=== PATIENT | female | born 1985 | race Caucasian/White ===

== ENCOUNTER 2017-08-14 23:37 | Emergency (ER) | payer OTHER, SELFPAY ==
[2017-08-14 23:38] VITALS: BP 131/73; PULSE 63; RESP 16; TEMP 37.2; O2SAT 97; BMI 24.5
--- NOTE | 2017-08-15 00:29 | CT_ITS ---
STUDY: CT ABDOMEN AND PELVIS WITHOUT CONTRAST REASON FOR EXAM: Female, 31 years old. Right upper quadrant pain RADIATION DOSAGE (If Supplied By Facility): CTDIvol = ( 6.22 ) mGy, DLP = ( 279.59 ) mGycm TECHNIQUE: Transaxial images were obtained from the dome of the diaphragm to the symphysis pubis without oral contrast, and without intravenous contrast. Sagittal and coronal images were reconstructed. Individualized dose optimization techniques were used for this CT. COMPARISON: None. FINDINGS: The visualized lung bases are unremarkable. The visualized portions of the heart are within normal limits. Normal liver. The gallbladder is contracted. Normal spleen. Normal pancreas. Normal bilateral adrenal glands. Normal right kidney. Normal left kidney. Normal visualized stomach. Normal small intestine. Normal colon. There is non-visualization of the appendix. Normal abdominal aorta. Normal inferior vena cava. Normal retroperitoneum. Normal urinary bladder. Free pelvic fluid. The uterus is retroverted. Normal abdominal wall. Normal osseous structures. CT/Abdomen/Pelvis without Cont IMPRESSION: Contracted gallbladder. No evidence of acute intestinal pathology or acute obstructive uropathy. Free pelvic fluid. Electronically Signed: Mayo Rich MD at 1:24 EST Tel , Service support ,
--- NOTE | 2017-08-15 00:32 | ED.DCSUM_ITS ---
- ER Visit Summary Date of Service: 08/15/17 Chief Complaint: [] Right lower quadrant abdominal pain History of Present Illness: The patient is a 31 F [] complaining of right lower quadrant abdominal pain beginning earlier today. Patient said she went to the urgent care where they marylou labs and sent her home for the lab results. She reports continued pain and concern for appendicitis. Fevers. Denies nausea and vomiting. No other complaints at this time. Physical Examination: [] Afebrile, vital signs stable. Young female in no acute distress cardiovascular exam is regular rate and rhythm. Lungs are clear to auscultation. Abdomen is soft with mild tenderness in the right lower quadrant. No guarding rebound. Remainder of exam is unremarkable. Test Results: [] CBC, CMP: Normal. CT abdomen/pelvis: Negative. Emergency Department Course and Treatment: [] Patient did not want pain or nausea medicine upon initial evaluation. On serial examination patient has no significant changes in exam. She was counseled regarding her diagnostic and laboratory findings. She was amenable to discharge and close follow-up. Treatment Plan: [] Follow-up with PCP. Disposition: [] Discharge, stable. Impression: [] Abdominal pain, unknown etiology This note was generated with [employer] dictation software. It may contain incorrect words, spelling, and punctuation that were not noted in review of the chart prior to signing ED Disposition - Plan for ED Patient: Chief Complaint: Abd Pain Referrals: Karissa Byers [Primary Care Provider] -
[2017-08-15 00:40] LABS: Absolute Lymphocyte Count 3.81 X10^3/ul (0.83-4.51); Absolute Neutrophil Count 1.8 X10^3/uL (2.0-7.7); Basophil# 0.03 X10^3/uL; Basophil% 0.5 % (0-1); Eosinophils% 3.1 % (0-5); Hematocrit 38.8 % (37-47); Hemoglobin 12.9 g/dl (12.0-15.0); Lymphocyte # 3.81 X10^3/ul (4.0); Lymphocyte % 58.9 % (19-41); Mean Corp Hgb Conc 33.2 g/gl (32-36); Mean Corpuscular Hgb 28.5 pg (27.0-32.0); Mean Corpuscular Volume 85.8 fL (81-99); Mean Platelet Vol. 9.5 fl (6.2-12.0); Monocyte# 0.66 X10^3/uL; Monocyte% 10.2 % (0-10); Neutrophil # 1.76 X10^3/uL (2.7-7.7); Neutrophil % 27.1 % (47-70); Platelet Count 271 K/mm3 (150-450); RBC Distribution Width SD 40.9 fl (35.1-43.9); Red Blood Count 4.52 M/mm3 (4.2-5.4); White Blood Count 6.5 K/mm3 (4.4-11.0)
[2017-08-15 00:41] LABS: POSITIVE COUNT NO; POSITIVE DIFFERENTIAL NO; POSITIVE MORPHOLOGY NO
[2017-08-15 00:48] LABS: ALB/GLOB Ratio 0.9 RATIO (0.9-2.4); AST(SGOT) 14 U/L (15-37); Alanine Aminotransfer ALT/SGPT 22 U/L (13-56); Albumin, Serum 3.5 g/dL (3.2-5.0); Alkaline Phosphatase 65 U/L (45-117); Anion Gap 7 (5-15); BUN 10 mg/dL (7-18); BUN/Creat Ratio 13.1 RATIO (10-20); Calcium,Total 8.4 mg/dL (8.5-10.1); Chloride 108 mmol/L (98-107); Creatinine, Serum 0.76 mg/dL (0.55-1.02); EST Glomerular Filtration Rate 95 mL/min (>60); Est Glom Filt Rate - Afr Amer 115 mL/min (>60); Estimated Creatinine Clearance 82.42 ml/min; Glucose 109 mg/dL (74-106); Potassium 3.7 mmol/L (3.5-5.1); Protein, Total 7.5 g/dL (6.4-8.2); Sodium Level 144 mmol/L (136-145)
--- NOTE | 2017-08-15 01:32 | ED.DEP ---
ED Disposition - Plan for ED Patient: Disposition: Home or Assisted Living Chief Complaint: Abd Pain Instructions: ED Abdominal Pain Unkn Cause Referrals: Karissa Byers [Primary Care Provider] -
[2017-08-15 01:43] VITALS: BP 100/58; PULSE 73; RESP 16
== END 2017-08-15 01:44 | disposition home or self-care (01) ==
PROVIDERS: Emergency Provider Emergency Medicine; Family Provider Family Medicine; PCP Family Medicine
DX: R10.31 Right lower quadrant pain (principal)
CPT/HCPCS: 74176; 80053; 85025; 99283; A4216

== ENCOUNTER → 2018-04-21 10:28 | Outpatient (CLI) | payer OTHER, SELFPAY ==
[2018-04-21 12:28] LABS: Hematocrit 40.6 % (37-47); Hemoglobin 13.4 g/dl (12.0-15.0); Mean Corpuscular Hgb 28.3 pg (27.0-32.0); Mean Corpuscular Volume 85.8 fL (81-99); Mean Platelet Vol. 10.2 fl (6.2-12.0); Platelet Count 305 K/mm3 (150-450); RBC Distribution Width CV 12.8 % (11.6-14.6); Red Blood Count 4.73 M/mm3 (4.2-5.4); White Blood Count 4.7 K/mm3 (4.4-11.0)
[2018-04-21 12:37] LABS: Scan Indicated on CBC? Y/N NO
[2018-04-21 12:48] LABS: Free T3 2.7 pg/mL (2.18-3.98); T4 Free Direct 0.93 ng/dL (0.76-1.46); Thyroid Stim Hormone (TSH) 0.63 uIU/mL (0.358-3.74)
[2018-04-21 13:38] LABS: Hemoglobin A1c 5.2 % (4.2-6.3)
[2018-04-27 14:49] LABS: HPV HC, High Risk Negative (Negative)
== END ==
PROVIDERS: Visit Provider Obstetrics & Gynecology
DX: R53.83 Other fatigue (principal); Z12.72 Encounter for screening for malignant neoplasm of vagina
CPT/HCPCS: 36415; 83036; 84439; 84443; 84481; 85027; 87624; 88175; G0145

== ENCOUNTER → 2018-07-26 09:56 | Outpatient (CLI) | payer OTHER, SELFPAY ==
[2018-07-26 09:46] VITALS: BMI 22.1
--- NOTE | 2018-07-26 09:56 | RAD_ITS ---
STUDY: X-RAY - RIGHT HAND REASON FOR EXAM: Female, 32 years old. Fifth metacarpal pain following injury. TECHNIQUE: 3 view(s) of the hand. COMPARISON: Comparison is made with prior study dated June 04, 2017. FINDINGS: Normal radiocarpal articulation. Normal distal radioulnar joint. Normal visualized carpal bones. Normal carpal articulations Normal carpometacarpal articulation of the thumb. Normal second through fifth carpometacarpal joints. Normal metacarpi. Normal metacarpophalangeal joint of the thumb. Normal interphalangeal joint of the thumb. Normal proximal and distal phalanges of the thumb. Normal metacarpophalangeal joints of the second through fifth fingers. Normal proximal and distal interphalangeal joints of the second through fifth fingers. Normal phalanges of the second through fifth fingers. The soft tissue structures are unremarkable. RAD/Hand Min 3 Views IMPRESSION: Normal x-ray examination of the hand. Electronically Signed: Jigar Sweeney MD at 10:27 EST Tel [phone], Service support ,
--- OUTSIDE RECORDS SUMMARY | 2018-09-27 19:58 | XMS RPT_ITS ---
:1985 Author Organization OHIP Care Team Providers Name Role Phone CHA ARGUELLO (RUBBER MILL OPERATOR) Referring Unavailable Denys Hernandez Attending Unavailable Denys Hernandez Attending Unavailable Denys Hernandez Referring Unavailable Mikye Byers Primary Care Unavailable Risa Cohn Attending Unavailable Maximiliano Cummings Attending Unavailable PROBLEMS PROBLEMS DATE TYPE CONDITION / CODE ATTENDING STATUS SOURCE 07/26/2018 Unknown S60.221A - Denys Hernandez Active [place] Contusion of right Community hand, initial Hospital encounter / Repository S60.221A(ICD-10) 04/21/2018 Unknown Z12.72 - Encounter Maximiliano Cummings for screening for Community malignant neoplasm [facility] / Repository Z12.72(ICD-10) 12/15/2017 Active Dysuria / NA Active [facility] R30.0(ICD-10) Other [place] Repository 08/14/2017 Active Periumbilical pain NA Active [facility] / R10.33(ICD-10) Main [place] Repository PROCEDURES PROCEDURES No Procedure Records FoundRESULTS RESULTS URGENT CARE VISIT Observed: 07/26/2018 Status: F Source: [place] REPORT 12:11 PM [facility] REPOSITORY [facility] [address] [place] [address] OFFICE VISIT Date of Service: 07/26/18 MR#: [id number] Acct: [id number] Name: MIKEY FREITAS Rep #: [id number] : 1985 Provider: Denys MAHMOOD Age/Sex: 32/F Location: [facility] Status: Signed Intake Vital Signs07/26/18 Height 5 ft 4 in Intake Visit Reasons: RIGHT HAND INJURY/ FROM PUNCHING A PUNCHING BAG Chief Complaint: Right hand Senior Actuarial Analyst Required: No Accompanied by: self Is patient in pain?: No Allergies ibuprofen [From Advil] Allergy (Verified 07/26/18 09:46) Rash PFSH Medical History History of gestational diabetes (Acute) Surgical History History of delivery (Acute) History of laparoscopy (Acute) Family History Other Colon cancer Myocardial infarction Social History Smoking Status: Never smoker HPI HPI Chief Complaint: Right hand Details: MIKEY FREITAS, is a 32 F who presents to the office today for complaint of right hand pain after punching a punching bag. Patient states that when she punched a punching bag she felt a popping sensation. She continues to have the pain with no relief since and is concerned for fracture. She localizes the pain over the fifth metacarpal area. She denies any loss in range of motion, sensation or strength. She does state using ice 2 times daily for 10 minutes. No other associated symptoms or alleviating/aggravating factors. ROS Const Constitutional: No chills, fever(s), fatigue or abnormal sleep pattern Musc Musculoskeletal: Positive for joint pain and stiffness; no joint swelling, limited range of motion, muscle weakness, tingling or numbness Skin Skin: No wounds or lesions Neuro Neurology: No behavioral changes, confusion, tingling or numbness Psych Psychiatric: No behavioral changes, No confusion, No abnormal sleep pattern Endo Endocrine: No fatigue Exam Const General: cooperative, healthy appearing Musc Musculoskeletal: No muscle weakness Skin General: no rashes or lesions noted Neuro General: alert, CN's II-XI intact bilaterally Extrem General: full ROM, normal capillary refill, no joint enlargement, normal exam except as noted Other: Pain to palpation over the fifth metacarpal with no obvious deformity or crepitus. Full range of motion, sensation and capillary refill throughout. Psych Appearance: grossly normal Mental Status: mental status grossly normal Assessment AND Plan Problems 1. Contusion of right hand, initial encounter S60.221A Status Acute Plan X-ray of the hand read and reviewed by myself finding no acute fractures. Awaiting radiology interpretation at time of dictation. Patient advised to continue with ice however to do over 20 minutes 2-3 times daily or use a warm water bath which ever alleviates the pain better. Advised to use ibuprofen or Tylenol unless contraindicated for pain relief. Patient advised to follow-up with her PCP in 7-10 days if no better sooner if worse. Patient advised of potential red flags and when appropriate to report to the ED. Patient verbalized understanding and agreement with all the above. Orders Orders: Coding Level of Care Code Off vis,est,level 4 Diagnoses Contusion of right hand, initial encounter S60.221A 07/26/18 1211 <Electronically signed by Denys MAHMOOD> Date Denys MAHMOOD Cosigner Signature: Date (if applicable) CC: HAND MIN 3 VIEWS Observed: 07/26/2018 Status: F Source: [place] 9:57 AM [facility] REPOSITORY [facility] Imaging Services [address] [place] [id number] Hand Min 3 Views MR#: [id number] Acct: [id number] Name: MIKEY FREITAS Rep #: [id number] : 1985 F 32 From: Jigar Sweeney MD PCP: Status: REG CLI Study: Hand Min 3 Views Date of Exam: 07/26/18 Exam# [id number] Ordering Dr: Denys Hernandez STUDY: X-RAY - RIGHT HAND REASON FOR EXAM: Female, 32 years old. Fifth metacarpal pain following injury. TECHNIQUE: 3 view(s) of the hand. COMPARISON: Comparison is made with prior study dated June 04, 2017. FINDINGS: Normal radiocarpal articulation. Normal distal radioulnar joint. Normal visualized carpal bones. Normal carpal articulations Normal carpometacarpal articulation of the thumb. Normal second through fifth carpometacarpal joints. Normal metacarpi. Normal metacarpophalangeal joint of the thumb. Normal interphalangeal joint of the thumb. Normal proximal and distal phalanges of the thumb. Normal metacarpophalangeal joints of the second through fifth fingers. Normal proximal and distal interphalangeal joints of the second through fifth fingers. Normal phalanges of the second through fifth fingers. The soft tissue structures are unremarkable. RAD/Hand Min 3 Views IMPRESSION: Normal x-ray examination of the hand. Electronically Signed: Jigar Sweeney MD at 10:27 EST Tel [phone], Service support , CC: Denys MAHMOOD Single Resource Boss: Signed CBC-COMPLETE BLOOD CNT Collected: 04/21/2018 Status: F Source: [place] NO DIFF 10:31 AM [facility] REPOSITORY TYPE CODE TESTS RESULT OUT OF RANGE REFERENCE UNITS LAB L100.1000 4.4-11.0 K/mm3 Normal WBC 4.7 LAB L100.1200 4.2-5.4 M/mm3 Normal RBC 4.73 LAB L100.1300 12.0-15.0 g/dl Normal HGB 13.4 LAB L100.1400 37-47 % Normal HCT 40.6 LAB L100.1500 81-99 fL Normal MCV 85.8 LAB L100.1600 27.0-32.0 pg Normal MCH 28.3 LAB L100.1700 32-36 g/gl Normal MCHC 33.0 LAB L100.1810 11.6-14.6 % Normal RDW CV 12.8 LAB L100.1820 35.1-43.9 fl Normal RDW SD 40.0 LAB L100.1900 150-450 K/mm3 Normal PLT 305 LAB L100.2000 6.2-12.0 fl Normal MPV 10.2 Performed By: #### L100.0500 #### [facility] [address] [facility] [place], [address] FREE T3 Collected: 04/21/2018 Status: F Source: [place] 10:31 AM [facility] REPOSITORY TYPE CODE TESTS RESULT OUT OF RANGE REFERENCE UNITS LAB L501.70734 2.18-3.98 pg/mL Normal FREE T3 2.7 Performed By: #### L501.26568, L501.9520, L506.0400 #### [facility] [address] [facility] [place], [address] THYROID STIM HORMONE Collected: 04/21/2018 Status: F Source: [place] ([facility]) 10:31 AM [facility] REPOSITORY TYPE CODE TESTS RESULT OUT OF RANGE REFERENCE UNITS LAB L501.9520 0.358-3.74 uIU/mL Normal TSH 0.63 Performed By: #### L501.08234, L501.9520, L506.0400 #### [facility] [address] [facility] [place], [address] T4 FREE DIRECT Collected: 04/21/2018 Status: F Source: [place] 10:31 AM [facility] REPOSITORY TYPE CODE TESTS RESULT OUT OF RANGE REFERENCE UNITS LAB L506.0400 0.76-1.46 ng/dL Normal T4 FREE 0.93 DIRECT Performed By: #### L501.78648, L501.9520, L506.0400 #### [facility] [address] [facility] [place], [address] HEMOGLOBIN A1C Collected: 04/21/2018 Status: F Source: [place] 10:31 AM [facility] REPOSITORY TYPE CODE TESTS RESULT OUT OF RANGE REFERENCE UNITS LAB L501.9985 4.2-6.3 % Normal HGB A1C 5.2 Performed By: #### L501.9985 #### [facility] [address] [place], [address] PAP I-G HPV HI Collected: 04/21/2018 Status: F Source: [place] RISK 10:10 AM [facility] REPOSITORY Order Comment: CYTOLOGY INFORMATION: - CLINICAL INFORMATION: - DATE LMP/MENOPAUSE: 04/02/18 LMP - COLLECTION VIAL: Thin Prep Vial - WOOD CHOPPER SOURCE: CERVICAL/ENDOCERVICAL - COLLECTION TECHNIQUE: BRUSH/SPATULA Specimen Comment: [id number] Specimen Comment: Source.............Cervix;Endocervix Specimen Comment: LMP / Prev Treat...[id number] Specimen Comment: No. of containers..01 ThinPrep Vial TYPE CODE TESTS RESULT OUT OF RANGE REFERENCE UNITS LAB L7400.0800 . Normal DIAGN Comment Result Comment: NEGATIVE FOR INTRAEPITHELIAL LESION AND MALIGNANCY. LAB L7400.0900 . Normal ADEQ Comment Result Comment: Satisfactory for evaluation. Endocervical and/or squamous metaplastic cells (endocervical component) are present. LAB L7400.1400 . Normal PERFORM Comment Result Comment: Marie Butler, Meter Mechanic (ASCP) LAB L7400.2575 . Normal TEST METHOD Comment Result Comment: This liquid based ThinPrep(R) pap test was screened with the use of an image guided system. LAB L7400.2600 . Normal . COMM LAB L7400.2700 . Normal PAPSMR Comment Result Comment: The Pap smear is a screening test designed to aid in the detection of premalignant and malignant conditions of the uterine cervix. It is not a diagnostic procedure and should not be used as the sole means of detecting cervical cancer. Both false-positive and false-negative reports do occur. LAB L7400.2950 Negative Normal HPV Negative HC,HGH RISK Result Comment: This high-risk HPV test detects thirteen high-risk types (16/18/31/33/35/39/45/51/52/56/58/59/68) without differentiation. Performed at: [address] [id number] Flavor Tank Tender: Tiffanie Lewis MD, Phone: [phone] Performed at: =[address], [place] [id number] Flavor Tank Tender: Tiffanie Lewis MD, Phone: [phone] Performed By: #### L7400.0375 #### [facility] (refer to report for specific site) refer to report for address and phone number PROGRESS Observed: 03/31/2018 Status: COMPLETED Source: [place] 2:00 PM [facility] REPOSITORY HNO ID: [id number] Author: Cha (Kim) Jos Service: (none) Author Type: Nurse Practitioner Type: Progress Notes Filed: 03/31/2018 2:16 PM Note Text: Subjective HPI Mikey Freitas is a 32 year old female who presents with cough, shortness of breath for the past 4 days. She has taken dayquil and nyquil and mucinex at home with little improvement. Sick contacts include her son. Review of Systems Constitutional: Negative. Negative for fever. HENT: Positive for congestion and sore throat. Negative for ear pain. Respiratory: Positive for cough and shortness of breath. Negative for sputum production. Cardiovascular: Negative. Negative for chest pain. Gastrointestinal: Negative for nausea and vomiting. Musculoskeletal: Negative. Negative for myalgias. Skin: Negative. Negative for rash. BP 104/80 Pulse 84 Temp 36.8 ?C (98.2 ?F) (Left Tympanic) Resp 14 Wt 59 kg (130 lb) SpO2 99% PAST MEDICAL HISTORY Diagnosis Date - NEGATIVE MEDICAL HISTORY PAST SURGICAL HISTORY Procedure Laterality Date - DELIVERY ONLY - TONSILLECTOMY HX ALLERGIES Advil [Ibuprofen] MEDICATIONS NORGESTIMATE-ETHINYL ESTRADIOL (SPRINTEC, 28, ORAL) Take by mouth. No family history on file. Social History Substance Use Topics - Smoking status: Never Smoker - Smokeless tobacco: Never Used - Alcohol use Not on file Objective Physical Exam Constitutional: She is well-developed, well-nourished, and in no distress. HENT: Right Ear: Tympanic membrane, external ear and ear canal normal. Left Ear: Tympanic membrane, external ear and ear canal normal. Nose: Nose normal. Mouth/Throat: Uvula is midline, oropharynx is clear and moist and mucous membranes are normal. No posterior oropharyngeal edema or posterior oropharyngeal erythema. Neck: Neck supple. Cardiovascular: Normal rate and regular rhythm. Pulmonary/Chest: Effort normal and breath sounds normal. No respiratory distress. She has no wheezes. She has no rales. Lymphadenopathy: She has no cervical adenopathy. Neurological: She is alert. Skin: Skin is warm and dry. No rash noted. No erythema. Nursing note and vitals reviewed. ASSESSMENT/PLAN: 1. Viral URI with cough - ICD9: 465.9, ICD10: J06.9, B97.89 - Discussed viral etiology and rationale for treatment. - Symptomatic treatment with prn analgesia - Supportive care with fluids and rest - VESQYHVKGLVBUHJ-XRTCJGIFPWRCPOK-VL 2 MG-30 MG-10 MG/5 ML SYRUP Work note provided for today's visit. - Follow-up with your PCP in 3-5 days if symptoms have not improved or sooner if symptoms worsen - Discussed red flags and need for immediate medical evaluation if any occur. - Discussed supportive care treatment with fluids, rest and analgesia. - Discussed expected course of illness Cha Arguello APRN.CNP CNOV Observed: 03/31/2018 Status: COMPLETED Source: [place] 2:00 PM [facility] REPOSITORY Office Visit (WSTR) MIKEY FREITAS ([id number]) 1985 F Date Time Provider Department 03/31/18 2:00 PM CHA ARGUELLO ([facility]) [facility] During your visit today, we recorded the following information about you: Temperature Pulse Respiration Blood pressure 98.2 degrees 84/minute 14/minute 104/80 Weight 59 kg Cha Arguello APRN.CNP 03/31/2018 2:16 PM Signed Subjective HPI Mikey Salcido Yolis is a 32 year old female who presents with cough, shortness of breath for the past 4 days. She has taken dayquil and nyquil and mucinex at home with little improvement. Sick contacts include her son. Review of Systems Constitutional: Negative. Negative for fever. HENT: Positive for congestion and sore throat. Negative for ear pain. Respiratory: Positive for cough and shortness of breath. Negative for sputum production. Cardiovascular: Negative. Negative for chest pain. Gastrointestinal: Negative for nausea and vomiting. Musculoskeletal: Negative. Negative for myalgias. Skin: Negative. Negative for rash. BP 104/80 Pulse 84 Temp 36.8 ?C (98.2 ?F) (Left Tympanic) Resp 14 Wt 59 kg (130 lb) SpO2 99% PAST MEDICAL HISTORY Diagnosis Date - NEGATIVE MEDICAL HISTORY PAST SURGICAL HISTORY Procedure Laterality Date - DELIVERY ONLY - TONSILLECTOMY HX ALLERGIES Advil [Ibuprofen] MEDICATIONS NORGESTIMATE-ETHINYL ESTRADIOL (SPRINTEC, 28, ORAL) Take by mouth. No family history on file. Social History Substance Use Topics - Smoking status: Never Smoker - Smokeless tobacco: Never Used - Alcohol use Not on file Objective Physical Exam Constitutional: She is well-developed, well-nourished, and in no distress. HENT: Right Ear: Tympanic membrane, external ear and ear canal normal. Left Ear: Tympanic membrane, external ear and ear canal normal. Nose: Nose normal. Mouth/Throat: Uvula is midline, oropharynx is clear and moist and mucous membranes are normal. No posterior oropharyngeal edema or posterior oropharyngeal erythema. Neck: Neck supple. Cardiovascular: Normal rate and regular rhythm. Pulmonary/Chest: Effort normal and breath sounds normal. No respiratory distress. She has no wheezes. She has no rales. Lymphadenopathy: She has no cervical adenopathy. Neurological: She is alert. Skin: Skin is warm and dry. No rash noted. No erythema. Nursing note and vitals reviewed. ASSESSMENT/PLAN: 1. Viral URI with cough - ICD9: 465.9, ICD10: J06.9, B97.89 - Discussed viral etiology and rationale for treatment. - Symptomatic treatment with prn analgesia - Supportive care with fluids and rest - SAFZQZQMVIHTSRP-OQPERMQVTSUTXCT-AK 2 MG-30 MG-10 MG/5 ML SYRUP Work note provided for today's visit. - Follow-up with your PCP in 3-5 days if symptoms have not improved or sooner if symptoms worsen - Discussed red flags and need for immediate medical evaluation if any occur. - Discussed supportive care treatment with fluids, rest and analgesia. - Discussed expected course of illness RASHAD Govea APRN.CNP 03/31/2018 2:05 PM Signed ASSESSMENT/PLAN: 1. Viral URI with cough - ICD9: 465.9, ICD10: J06.9, B97.89 - Discussed viral etiology and rationale for treatment. - Symptomatic treatment with prn analgesia - Supportive care with fluids and rest - The patient may also use warm salt water gargles, throat lozenges and/or OTC throat spray as needed. - XXCVDSSXWILQPKK-TGPFFEUPRZSDPVQ-CR 2 MG-30 MG-10 MG/5 ML SYRUP Cha Arguello APRN.CNP Treatment for Viral Upper Respiratory Tract Infections Your body will kill off the virus by itself. Additionally, you can prime your body's immune system. This may help you get better more quickly. 1. Drink lots of fluids - at least one gallon of non-caffeinated liquids per day 2. Make sure you are eating well 3. Get plenty of rest - at least 8 hours of sleep per night for adults and more for children We do not have any medications that kill off these viruses. Antibiotics are used to treat bacterial infections; however, they are not active against viral infections. There are some things that might help you feel better, though. 1. Vaporizers, humidifiers, hot showers, and hot fluids help open respiratory and sinus passages 2. Sudafed is a safe and effective decongestant 3. Lena Nasal [place] may offer relief of nasal and head congestion 4. Marco Antonio's Vapor Rub placed on a hot towel and draped over the head may relieve congestion 5. Tylenol and Advil help control fevers and headaches 6. Salt water gargles help relieve sore throats 7. Chloraceptic spray or throat lozenges may also help relieve sore throat symptoms 8. Robitussin DM will help loosen up secretions and also provide relief from a cough Occasionally, viral infections turn into something more serious. You should see your doctor or return to the Urgent Care if: 1. You have fevers for longer than five days 2. You have fevers above 102 degrees 3. You are still sick after 10 days 4. You have shortness of breath or wheezing 5. After several days you are getting worse rather than better Referring Provider: SELF [200] Allergies As of Date: 03/31/2018 Noted Allergy Reaction ADVIL (IBUPROFEN) 06/15/2015 2 - Rash Date Reviewed: 03/31/2018 Reviewed by: Cha (Kim) Jos - Fully Assessed Reason for Visit: Cough [28] Breathing Problem [17] Primary Visit Diagnosis:Viral URI with cough [J06.9, B97.89] Order(s):Xkbaoejnisltqft-Xsnwqzsow-XY (BROMFED DM) 2-30-10 mg/5 mL syrupTake 5 mL by mouth four times daily as needed.Disp: 118 mLRfl: 0 Prescriptions as of 03/31/2018 Sig: SPRINTEC (28) ORAL Take by mouth. BROMPHENIRAMINE-PSEUDOEPHEDRI* Take 5 mL by mouth four times* Problem List As Of Date: 03/31/2018 (None) Other instructions from your clinician: ASSESSMENT/PLAN: 1. Viral URI with cough - ICD9: 465.9, ICD10: J06.9, B97.89 - Discussed viral etiology and rationale for treatment. - Symptomatic treatment with prn analgesia - Supportive care with fluids and rest - The patient may also use warm salt water gargles, throat lozenges and/or OTC throat spray as needed. - QDMZUPRNVDSBRXT-TCRXLWOSTYZGAYL-VX 2 MG-30 MG-10 MG/5 ML SYRUP Cha Arguello APRN.KIM Treatment for Viral Upper Respiratory Tract Infections Your body will kill off the virus by itself. Additionally, you can prime your body's immune system. This may help you get better more quickly. 1. Drink lots of fluids - at least one gallon of non-caffeinated liquids per day 2. Make sure you are eating well 3. Get plenty of rest - at least 8 hours of sleep per night for adults and more for children We do not have any medications that kill off these viruses. Antibiotics are used to treat bacterial infections; however, they are not active against viral infections. There are some things that might help you feel better, though. 1. Vaporizers, humidifiers, hot showers, and hot fluids help open respiratory and sinus passages 2. Sudafed is a safe and effective decongestant 3. Lena Nasal [place] may offer relief of nasal and head congestion 4. Marco Antonio's Vapor Rub placed on a hot towel and draped over the head may relieve congestion 5. Tylenol and Advil help control fevers and headaches 6. Salt water gargles help relieve sore throats 7. Chloraceptic spray or throat lozenges may also help relieve sore throat symptoms 8. Robitussin DM will help loosen up secretions and also provide relief from a cough Occasionally, viral infections turn into something more serious. You should see your doctor or return to the Urgent Care if: 1. You have fevers for longer than five days 2. You have fevers above 102 degrees 3. You are still sick after 10 days 4. You have shortness of breath or wheezing 5. After several days you are getting worse rather than better Prescriptions ordered this encounter Disp Refills Start End PNSFWVTXLNYUOEJ-XFPNSRRYWLLDDCJ-MO 2* 118 * 0 03/31/2018 Route: ORAL Sig: Take 5 mL by mouth four times daily as needed. Letter Text Cha Arguello APRN.[facility] Urgent Care [address] [facility] [address] Dept: [phone] 03/31/2018 Mikey Freitas [address] [place] [id number] To Whom it May Concern: This is to certify that Mikey Freitas was seen at our office for medical care. Mikey may return to work on 04/01/2018. If you have any questions please feel free to call. Sincerely: Cha Arguello APRN.[facility] Encounter Status:Closed by CHA ARGUELLO on 03/31/18 ED NOTE Observed: 12/15/2017 Status: COMPLETED Source: [place] 11:31 PM [facility] OTHER [place] REPOSITORY HNO ID: [id number] Author: Kasia AlvesRn) ALFREDO Jay Service: (none) Author Type: Registered Nurse Type: ED Notes Filed: 12/15/2017 11:31 PM Note Text: Discharge instructions d/w pt at bedside. Stated understanding with no further questions for this nurse. Encouraged f/u with PCP and referring doctors given. Stated understanding. Prescription(S) were given X1. ED NOTE Observed: 12/15/2017 Status: COMPLETED Source: [place] 11:31 PM CLINIC OTHER CAMPUS REPOSITORY HNO ID: [id number] Author: Shreya Avalos (Medic) Service: (none) Author Type: Hotel Supplies Salesperson and Clinical Dental Technician Type: ED Notes Filed: 12/18/2017 9:07 AM Note Text: Emergency Services: ED Call Back Questionnaire SERVICE DATE: 12/15/2017 Are you feeling better? Yes Any questions about discharge instructions and follow-up care? No Were you able to make a follow up appointment? Yes Do you have any further questions? No Is there anything that we could have done differently to improve your ED visit? No SIGNATURE: Shreya Avalos PATIENT NAME: Mikey Freitas DATE: December 18, 2017 TIME: 9:05 AM ED PROV NOTE Observed: 12/15/2017 Status: COMPLETED Source: [place] 11:30 PM CLINIC OTHER CAMPUS REPOSITORY O ID: [id number] Author: Bhaskar Carmichael (Pa) Service: (none) Author Type: Physician Petrophysical Engineer Type: ED Provider Notes Filed: 12/15/2017 11:32 PM Note Text: ED Provider Note Patient Name: Mikey Freitas SERVICE DATE: 12/15/17 History Patient presents with: Urinary Frequency 32-year-old female presents emergency Department with complaints of dysuria ongoing warfarin currently. States that she has also noticed that she believes symptoms of pelvic pain related to her ovarian cyst. States that she gets this frequently and that it seems to be resolving. States that she was concerned however with the dysuria that she may have a UTI. Denies being . Denies any other complaints. History provided by: Patient deputy chief magistrate used: No PAST MEDICAL HISTORY Diagnosis Date - NEGATIVE MEDICAL HISTORY PAST SURGICAL HISTORY Procedure Laterality Date - DELIVERY ONLY - TONSILLECTOMY HX No family history on file. Social History Social History Main Topics - Smoking status: Never Smoker - Smokeless tobacco: Never Used - Alcohol use Not on file - Drug use: Unknown - Sexual activity: Not on file ALLERGIES Allergen Reactions - Advil [Ibuprofen] Rash Review of Systems Constitutional: Negative. Negative for chills, fatigue and fever. HENT: Negative. Respiratory: Negative. Negative for cough. Cardiovascular: Negative. Gastrointestinal: Negative for abdominal pain, nausea and vomiting. Genitourinary: Positive for dysuria and urgency. Negative for flank pain, vaginal bleeding and vaginal discharge. Musculoskeletal: Negative. Skin: Negative. Negative for rash and wound. Neurological: Negative. Psychiatric/Behavioral: Negative. Physical Exam BP 124/74 Pulse 79 Temp (Src) 98.3 (Oral) Resp 14 Wt 125 lb (56.7kg) SpO2 99% Physical Exam Constitutional: She is oriented to person, place, and time. She appears well-developed and well-nourished. No distress. HENT: Head: Atraumatic. Eyes: EOM are normal. Pupils are equal, round, and reactive to light. Neck: Normal range of motion. Cardiovascular: Normal rate. Pulmonary/Chest: Effort normal. Abdominal: Soft. Bowel sounds are normal. She exhibits no distension. There is no tenderness. Musculoskeletal: Normal range of motion. Neurological: She is alert and oriented to person, place, and time. No cranial nerve deficit. Coordination normal. Skin: Skin is warm. Capillary refill takes less than 2 seconds. No erythema. Psychiatric: She has a normal mood and affect. Her behavior is normal. Judgment and thought content normal. Nursing note and vitals reviewed. Diagnostic Testing ED Labs Ordered and Reviewed URINALYSIS HCG QUAL UR URINE CULTURE Procedures Medical Decision Making MDM Clinically and hemodynamically stable while here in the emergency department. Patient's urine will be cultured however no bacteria was seen/MB treated symptomatically with Pyridium. Advised to return here symptoms change or worsen. ED Course / Clinical Impression Clinical Impressions as of Dec 15 2329 Dysuria Plan The patient was DISCHARGED: Counseled patient regarding lab results AND suspected diagnosis AND need for follow-up. Discharged home with verbal and written instructions. They were instructed to return as needed for persistent or worsening symptoms or any new concerns. Condition at time of disposition: stable SIGNATURE: DESHAWN Quintero (Pa) 12/15/17 2332 URINALYSIS Collected: 12/15/2017 Status: F Source: [place] 10:53 PM CLINIC OTHER CAMPUS REPOSITORY TYPE CODE TESTS RESULT OUT OF REFERENCE UNITS RANGE LAB UC Yellow Color Yellow LAB [facility] Clear Clarity Clear LAB UGLUC Negative mg/dL Glucose, Urine Negative LAB UBIL Negative Bilirubin, Urine Negative LAB UKET Negative Ketones, Urine Negative LAB USPG 1.001-1.029 Specific [place], Ur 1.010 LAB UHGB Negative Hemoglobin/Blood, Negative Ur LAB UPH 5.0-8.0 pH 6.5 LAB UPROT Negative mg/dL Protein, Urine Negative LAB UUROB 0.2-1.0 Urobilinogen 0.2 LAB UNITR Negative Nitrites Negative LAB ULKEST Negative Leukest Negative Performed By: #### UA, UHCG #### [facility] [address] [facility] [phone] HCG QUAL, URINE Collected: 12/15/2017 Status: F Source: [place] 10:53 PM [facility] OTHER [place] REPOSITORY TYPE CODE TESTS RESULT OUT OF REFERENCE UNITS RANGE LAB UHCG Negative HCG Qual, Negative Urine Result Comment: False positives and false negatives are rare but have been described. Clinical correlation of the findings is recommended. Performed By: #### UA, CG #### [facility] [address] [facility] [phone] Observed: 12/15/2017 Status: F Source: [place] URINE CULTURE 10:53 PM [facility] REPOSITORY Sp. Request/Comment: - Specimen received in preservative Culture Result - No growth (<1,000 CFU/ml) Performed By: #### URCUL #### [facility] [address] [facility] [phone] [facility] [address] [address] ED NOTE Observed: 12/15/2017 Status: COMPLETED Source: [place] 10:47 PM [facility] REPOSITORY HNO ID: [id number] Author: Kasia (Rn) ALFREDO Jay Service: (none) Author Type: Registered Nurse Type: ED Notes Filed: 12/15/2017 11:29 PM Note Text: Pt presents to ED with c/o urinary frequency, urgency and burning. She states that she has had some pelvic pressure but this is because of my ovarian cysts. She states that is what she chalked it up to until the urinary symptoms started yesterday. She says that she has had UTI before and this is what it felt like. Pt denies any fevers, chills, n/v. Plan of care -Monitor Patient's Vital Signs for changes in condition -Monitor patient for changes in pain -Maintain patient safety and privacy -Provide comfort measures -Call light in place Siderails up, bed in locked and low position EMERGENCY DEPARTMENT Observed: 08/15/2017 Status: F Source: [place] SUMMARY 7:14 AM [facility] REPOSITORY [facility] Medical Records Department [address] [place] [address] Emergency Department Summary 08/15/17 0030 MR#: [id number] Acct: [id number] Name: MIKEY FREITAS Rep #: [id number] : 1985 31 From: Risa Cohn DO PCP: Mikey Byers Status: DEP ER - ER Visit Summary Date of Service: 08/15/17 Chief Complaint: [] Right lower quadrant abdominal pain History of Present Illness: The patient is a 31 F [] complaining of right lower quadrant abdominal pain beginning earlier today. Patient said she went to the urgent care where they marylou labs and sent her home for the lab results. She reports continued pain and concern for appendicitis. Fevers. Denies nausea and vomiting. No other complaints at this time. Physical Examination: [] Afebrile, vital signs stable. Young female in no acute distress cardiovascular exam is regular rate and rhythm. Lungs are clear to auscultation. Abdomen is soft with mild tenderness in the right lower quadrant. No guarding rebound. Remainder of exam is unremarkable. Test Results: [] CBC, CMP: Normal. CT abdomen/pelvis: Negative. Emergency Department Course and Treatment: [] Patient did not want pain or nausea medicine upon initial evaluation. On serial examination patient has no significant changes in exam. She was counseled regarding her diagnostic and laboratory findings. She was amenable to discharge and close follow-up. Treatment Plan: [] Follow-up with PCP. Disposition: [] Discharge, stable. Impression: [] Abdominal pain, unknown etiology This note was generated with [employer] dictation software. It may contain incorrect words, spelling, and punctuation that were not noted in review of the chart prior to signing ED Disposition - Plan for ED Patient: Chief Complaint: Abd Pain Referrals: Mikey Byers [Primary Care Provider] - What to do if you have Problems For any increased pain, shortness of breath, bleeding, nausea or vomiting, chest pain, or any unexpected problems, contact your Primary Care Provider. Call [facility] ([phone]) or report to the closest Emergency Room. Call 911 if necessary. 08/15/17 0714 <Electronically signed by Risa Cohn DO> Date Risa Cohn DO Cosigner Signature (If Indicated): Date CC: Mikey Byers DISCHARGE INSTRUCTION Observed: 08/15/2017 Status: F Source: [place] 1:34 AM [facility] Medical Records Department [address] [place] [address] Discharge Instruction 08/15/17 013 MR#: [id number] Acct: [id number] Name: MIKEY FREITAS Rep #: [id number] : 1985 31 From: Risa Cohn DO PCP: Mikey Byers Status: REG ER ED Disposition - Plan for ED Patient: Disposition: Home or Assisted Living Chief Complaint: Abd Pain Instructions: ED Abdominal Pain Unkn Cause Referrals: Mikey Byers [Primary Care Provider] - What to do if you have Problems For any increased pain, shortness of breath, bleeding, nausea or vomiting, chest pain, or any unexpected problems, contact your Primary Care Provider. Call [facility] ([phone]) or report to the closest Emergency Room. Call 911 if necessary. 08/15/17133 <Electronically signed by Risa Cohn DO> Date Risa Cohn DO Cosigner Signature (If Indicated): Date CC: Mikey Byers ABDOMEN/PELVIS WITHOUT Observed: 08/15/2017 Status: F Source: [place] CONT 12:30 AM [facility] Imaging Services [address] [place] [address] Abdomen/Pelvis without Cont MR#: [id number] Acct: [id number] Name: MIKEY FREITAS Rep #: [id number] : 1985 F 31 From: Mayo Rich MD PCP: Mikey Byers Status: REG ER Study: Abdomen/Pelvis without Cont Date of Exam: 08/15/17 Exam# [id number] Ordering Dr: Risa Cohn DO STUDY: CT ABDOMEN AND PELVIS WITHOUT CONTRAST REASON FOR EXAM: Female, 31 years old. Right upper quadrant pain RADIATION DOSAGE (If Supplied By Facility): CTDIvol = ( 6.22 ) mGy, DLP = ( 279.59 ) mGycm TECHNIQUE: Transaxial images were obtained from the dome of the diaphragm to the symphysis pubis without oral contrast, and without intravenous contrast. Sagittal and coronal images were reconstructed. Individualized dose optimization techniques were used for this CT. COMPARISON: None. FINDINGS: The visualized lung bases are unremarkable. The visualized portions of the heart are within normal limits. Normal liver. The gallbladder is contracted. Normal spleen. Normal pancreas. Normal bilateral adrenal glands. Normal right kidney. Normal left kidney. Normal visualized stomach. Normal small intestine. Normal colon. There is non-visualization of the appendix. Normal abdominal aorta. Normal inferior vena cava. Normal retroperitoneum. Normal urinary bladder. Free pelvic fluid. The uterus is retroverted. Normal abdominal wall. Normal osseous structures. CT/Abdomen/Pelvis without Cont IMPRESSION: Contracted gallbladder. No evidence of acute intestinal pathology or acute obstructive uropathy. Free pelvic fluid. Electronically Signed: Mayo Rich MD at 1:24 EST Tel , Service support , CC: Mikey Byers; Risa Cohn DO Single Resource Boss: Signed CBC W/DIFF, AUTOMATED Collected: 08/15/2017 Status: F Source: [place] 12:20 AM [facility] REPOSITORY TYPE CODE TESTS RESULT OUT OF RANGE REFERENCE UNITS LAB L100.1000 4.4-11.0 K/mm3 Normal WBC 6.5 LAB L100.1200 4.2-5.4 M/mm3 Normal RBC 4.52 LAB L100.1300 12.0-15.0 g/dl Normal HGB 12.9 LAB L100.1400 37-47 % Normal HCT 38.8 LAB L100.1500 81-99 fL Normal MCV 85.8 LAB L100.1600 27.0-32.0 pg Normal MCH 28.5 LAB L100.1700 32-36 g/gl Normal MCHC 33.2 LAB L100.1810 11.6-14.6 % Normal RDW CV 13.0 LAB L100.1820 35.1-43.9 fl Normal RDW SD 40.9 LAB L100.1900 150-450 K/mm3 Normal PLT 271 LAB L100.2000 6.2-12.0 fl Normal MPV 9.5 LAB L100.2100 47-70 % Low NEUT% 27.1 LAB L100.2200 19-41 % High LY% 58.9 LAB L100.2300 0-10 % High MONO% 10.2 LAB L100.2400 0-5 % Normal EO% 3.1 LAB L100.2500 0-1 % Normal BASO% 0.5 LAB L100.2550 0.0-0.9 % Normal IM GRAN % 0.200 Result Comment: IG% - Immature Granulocytes (promyelocytes, myelocytes and metamyelocytes) > 1% indicates that a LEFT SHIFT is Present. LAB L100.2620 2.0-7.7 X10 3/uL Low Absolute Neut 1.8 LAB L100.2720 0.83-4.51 X10 3/ul Normal Absolute Lymph 3.81 Performed By: #### L100.0100 #### [facility] [place], [address] COMPREHENSIVE METABOLIC Collected: 08/15/2017 Status: F Source: [place] [facility] 12:20 AM [facility] REPOSITORY TYPE CODE TESTS RESULT OUT OF RANGE REFERENCE UNITS LAB L501.0100 74-106 mg/dL High GLU 109 Result Comment: Fasting Glucose result from 100 to 125 mg/dL suggests IMPAIRED HOMEOSTASIS per A.D.A. criteria. Please note revised GLUCOSE reference range effective 2017. LAB L501.1000 7-18 mg/dL Normal BUN 10 LAB L501.1100 0.55-1.02 mg/dL Normal CREAT,SERUM 0.76 Result Comment: The validity of the calculated GFR AND GFRAA in patients over 70 years has not been determined. Clinical correlation is essential. LAB L501.1110 >60 mL/min Normal EST GFR 95 Result Comment: Non- GFR Calc LAB L501.1115 >60 mL/min Normal EST GFR - AA 115 Result Comment: GFR Calc LAB L501.1255 ml/min Normal Estimated CRCL 82.42 LAB L501.1300 10-20 RATIO Normal BUN/CRE 13.1 LAB L501.1500 6.4-8. g/dL Normal 2 T PROT 7.5 LAB L501.1800 3.2-5. g/dL Normal 0 ALB 3.5 LAB L501.1950 2.2-4. g/dL Normal 2 GLOB 4.0 LAB L501.2000 0.9-2. RATIO Normal 4 A/G 0.9 LAB L501.2200 8.5-10 mg/dL Low .1 CA 8.4 LAB L501.4100 15-37 U/L Low AST 14 LAB L501.4305 45-117 U/L Normal ALK P 65 LAB L501.4405 13-56 U/L Normal ALT 22 Result Comment: Please note revised ALT reference range effective 2017. LAB L501.4600 0.20-1.00 mg/dL Normal T BILI 0.20 LAB L501.5300 136-145 mmol/L Normal NA 144 LAB L501.5600 3.5-5.1 mmol/L Normal K 3.7 LAB L501.5900 98-107 mmol/L High CL 108 LAB L501.6100 21.0-32.0 mmol/L Normal CO2 29.0 LAB L501.6200 5-15 Normal GAP 7 Performed By: #### L500.4050 #### [facility] [address] [place], [place], [id number] CBC AND DIFFERENTIAL Collected: 08/14/2017 Status: F Source: [place] 4:43 PM [facility] REPOSITORY TYPE CODE TESTS RESULT OUT OF REFERENCE UNITS RANGE LAB WBC 3.70-11.00 k/uL WBC 5.04 LAB RBC 3.90-5.20 m/uL RBC 4.74 LAB HGB 11.5-15.5 g/dL Hemoglobin 13.4 LAB HCT 36.0-46.0 % Hematocrit 41.1 LAB MCV 80.0-100.0 fL MCV 86.7 LAB MCH 26.0-34.0 pG MCH 28.3 LAB MCHC 30.5-36.0 g/dL MCHC 32.6 LAB RDWCV 11.5-15.0 % RDW-CV 12.9 LAB PLTCT 150-400 k/uL Platelet Count 309 LAB MPV 9.0-12.7 fL MPV 10.6 LAB ANEUT % Neut% 32.9 LAB AANEUT 1.45-7.50 k/uL Abs Neut 1.64 LAB ALYMP % Lymph% 52.8 LAB AALYMP 1.00-4.00 k/uL Abs Lymph 2.66 LAB AMONO % Saunders% 11.5 LAB AAMONO <0.87 k/uL Abs Saunders 0.58 LAB AEOS % Eosin% 2.2 LAB AAEOS <0.46 k/uL Abs Eosin 0.11 LAB ABASO % Baso% 0.6 LAB AABASO <0.11 k/uL Abs Baso 0.03 LAB AUNRBC 0 /100 WBC NRBCs 0.0 LAB ABNRBC <0.01 k/uL Absolute nRBC <0.01 LAB DTYP DTYPE Auto Diff Performed By: #### CBCDIF, CMP #### [facility] [address] [place], [place] [address] COMP METABOLIC PANEL Collected: 08/14/2017 Status: F Source: [place] 4:43 PM [facility] REPOSITORY TYPE CODE TESTS RESULT OUT OF REFERENCE UNITS RANGE LAB TP 6.3-8.0 g/dL Protein, Total 7.6 LAB ALB 3.9-4.9 g/dL Albumin 4.2 LAB CA 8.5-10.2 mg/dL Calcium, Total 9.2 LAB TBIL 0.2-1.3 mg/dL Bilirubin, Total 0.3 LAB ALKP 32-117 U/L Alkaline Phosphatase 56 LAB AST 13-35 U/L AST 18 LAB GLU 74-99 mg/dL Glucose High 113 Result Comment: The [place] Diabetes Association (ADA) provides guidance for cutoff values for fasting glucose and random glucose. The ADA defines fasting as no caloric intake for at least 8 hours. Fas ting plasma glucose results between 100 to 125 mg/dL indicate increased risk for diabetes (prediabetes). Fasting plasma glucose results greater than or equal to 126 mg/dL meet the criteria for diagnosis of diabetes. In the absence of unequivocal hyperglycemia, results should be confirmed by repeat testing. In a patient with classic symptoms of hyperglycemia or hyperglycemic crisis, random plasma glucose results greater than or equal to 200 mg/dL meet the criteria for diagnosis of diabetes. Reference: Standards of Medical Care in Diabetes 2016, [place] [employer] Association. Diabetes Care. 2016.39(Suppl 1). LAB BUN 7-21 mg/dL BUN 9 LAB CRET 0.58-0.96 mg/dL Creatinine 0.77 LAB NA 136-144 mmol/L Sodium 143 LAB K 3.7-5.1 mmol/L Potassium 4.0 LAB CL 97-105 mmol/L Chloride 103 LAB CO2 22-30 mmol/L CO2 28 LAB AGAP 9-18 mmol/L Anion Gap 12 LAB ALT 7-38 U/L ALT 12 LAB GFRAA eGFR- Amer. >60 LAB GFRNAA . eGFR-All Other Races >60 Result Comment: eGFR (Estimated GFR) Units of measure: mL/min/1.73 meters squared eGFR is derived from the reexpressed MDRD Study equation using the following parameters: serum creatinine, age, gender and race. The creatinine assay has been calibrated to be traceable to IDMS. An eGFR <60 mL/min/1.73m2 for >3 months is consistent with chronic kidney disease. Refer to KDOQI guidelines for clinical interpretation. In patients with unstable renal function, e.g. those with acute kidney injury, the eGFR may not accurately reflect actual GFR. Performed By: #### CBCDIF, CMP #### [facility] [address] [place], [place] [address] PROGRESS Observed: 08/14/2017 Status: COMPLETED Source: [place] 4:29 PM [facility] REPOSITORY HNO ID: [id number] Author: Cha (Mover Helper) Praisler-Wood Service: (none) Author Type: Nurse Practitioner Type: Progress Notes Filed: 08/14/2017 4:46 PM Note Text: BRUNA Mikey Freitas is a 31 year old female who presents with right upper quadrant abdominal pain, started last night, she rates it a 7/10. She states it only hurts if she touches it and describes it as sharp and burning. Review of Systems Constitutional: Negative. Negative for chills and fever. Gastrointestinal: Positive for abdominal pain. Negative for diarrhea, nausea and vomiting. Genitourinary: Negative. Negative for dysuria and frequency. BP 110/70 Pulse 62 Temp 37.6 ?C (99.7 ?F) (Left Tympanic) Resp 16 Wt 59.9 kg (132 lb) LMP 07/21/2017 PAST MEDICAL HISTORY Diagnosis Date - NEGATIVE MEDICAL HISTORY PAST SURGICAL HISTORY Procedure Laterality Date - DELIVERY ONLY - TONSILLECTOMY HX ALLERGIES Advil [Ibuprofen] MEDICATIONS NORGESTIMATE-ETHINYL ESTRADIOL (SPRINTEC, 28, ORAL) Take by mouth. No family history on file. Social History Substance Use Topics - Smoking status: Never Smoker - Smokeless tobacco: Never Used - Alcohol use Not on file Physical Exam Constitutional: She is well-developed, well-nourished, and in no distress. Cardiovascular: Normal rate and regular rhythm. Pulmonary/Chest: Effort normal and breath sounds normal. No respiratory distress. She has no wheezes. She has no rales. Abdominal: Soft. Bowel sounds are normal. She exhibits no distension and no mass. There is no hepatosplenomegaly. There is tenderness (right periumbilical area). There is no rebound, no guarding, no CVA tenderness and no tenderness at McBurney's point. Neurological: She is alert. Skin: Skin is warm and dry. No rash noted. Nursing note and vitals reviewed. ASSESSMENT/PLAN: 1. Periumbilical abdominal pain - ICD9: 789.05, ICD10: R10.33 Etiology unclear Differential Diagnosis includes Gastritis and Appendicitis - CBC + DIFF- Labs to rule out infectious process. Advised if WBC is elevated she will have to have imaging of abdomen to rule out appendicitis or other infection. - COMP METABOLIC PANEL - clear liquid diet, advised to seek care in ER if development of fever or worsening pain or pain migrating to RLQ. - Discussed red flags and need for immediate medical evaluation if any occur. - Discussed supportive care treatment with fluids, rest and analgesia. Cha Arguello CNP ALLERGIES ALLERGIES DATE TYPE / CODE NAME / CODE REACTION SEVERITY SOURCE 07/26/2018 Drug ibuprofen/[id number] Rash Unknown [facility] Allergy/416 2377(RXNORM) [facility] 907759(SNOM Repository ED CT) 06/15/2015 DRUG IBUPROFEN RASH [facility] INGREDI/[facility] [place] 185641(SNOM Repository ED CT) ENCOUNTERS ENCOUNTERS ADMIT/DISCHARGE ACCOUNT ADMITTING ENCOUNTER LOCATION SOURCE NUMBER CLASS 07/26/2018 [id number] Ambulatory [facility] ing:HPRAD Repository 07/26/2018/07/26/19 [id number] [facility] Repository 04/21/2018 [id number] [facility] ing:WOBLAB Repository 03/31/2018/03/31/20 [id number] Ambulatory [address] Repository 12/15/2017/12/16/19 [id number] Emergency [address] Other [place] Repository 08/14/2017/08/15/19 [id number] Emergency [address] ing:ED Repository 08/14/2017/08/14/19 [id number] Ambulatory [address] Repository 08/14/2017/08/18/19 [id number] Ambulatory [address] Repository PAYERS PAYERS ENCOUNTER GUARANTOR PAYER SUBSCRIBER SOURCE 07/26/2018 MIKEY [id number] Insurance:MEDICAL WHEELANDDOB: [facility] [id number] Number: Repository [id number]: [phone] [id number] [phone] () Date:[id number] [address]DM: 07/26/2018 Secondary NOT GIVENUNK [place] Insurance:SELF PAY [facility] Number: Effective Repository Date:2018-07-26 07/26/2018 Eric Rosaand355 Insurance:MEDICAL WHEELANDDOB: [facility] [id number] Number: Repository [id number]: 330 [id number] [phone] (HP) Date:0612-60-09RT [address] [place] [id number]: 07/26/2018 Secondary NOT GIVENUNK [place] Insurance:SELF PAY [facility] Number: Effective Repository Date:2018-07-26 04/21/2018 Eric Primary MIKEY [address]rett [id number] Insurance:MEDICAL WHEELANDDOB: [facility] [id number] Number: Repository [id number]: 330 [id number] [phone] (HP) Date:0542-20-63IW [address] [place] [phone]: 04/21/2018 Secondary NOT GIVENUNK [place] Insurance:SELF PAY [facility] Number: Effective Repository Date:2018-04-21 08/14/2017 [facility] MIKEY [address]rett [id number] Insurance:CHIARA ROSAANDDOB: [facility] [id number] Number: Repository [id number]: 330 [id number] [phone] (HP) Date:7149-74-57BX [address], [place] [address]FK: 08/14/2017 Secondary NOT GIVENUNK [place] Insurance:SELF PAY [facility] Number: Effective Repository Date:2017-08-14
== END ==
PROVIDERS: Referring Provider Physician Assistant Surgical; Visit Provider Physician Assistant Surgical
DX: S60.221A Contusion of right hand, initial encounter (principal)
CPT/HCPCS: 73130

== ENCOUNTER 2019-05-07 20:52 | Emergency (ER) | payer OTHER, SELFPAY ==
[2018-07-26 09:46] VITALS: BMI 22.1
[2019-05-07 20:52] VITALS: BP 153/99; PULSE 110; RESP 16; TEMP 36.8; O2SAT 96; BMI 25.9
--- NOTE | 2019-05-07 21:05 | ED.VIS.GEN ---
History of Present Illness Chief Complaint: Cold Sx Detail of Chief Complaint: Sinus infection Informant: Patient Onset: Weeks - 2 weeks Current Severity: Moderate Maximum Severity: Moderate Narrative: Patient presents with URI symptoms and sinus pressure for the past 2 weeks. She initially had cough at the onset of her illness but that has improved. She was seen at urgent care 6 days ago and told she just had a cold. Symptoms did not improve this week and she went back to urgent care today. She was started on Augmentin and is only taken 1 dose. Patient presents to the ED due to concerns for sepsis. She has had sepsis from other infections in the past, not from prior sinus infection. She has a lot of facial pressure but denies headache. She has no vomiting or light sensitivity. She has not noted a fever with this illness. Past Medical History - Allergies and Home Meds Allergies/Adverse Reactions: Allergies ibuprofen [From Advil] Allergy (Verified 07/26/18 09:46) Rash cough Primary Care Physician: Luke Terrazas,Out of [Primary Care Provider] - Prior records reviewed: Yes Past Medical History: - - Reviewed Smoking Status: Never smoker Review of Systems General: Denies: Chills, Fever Eyes: Denies: Visual changes - bilaterally ENT: Reports: - - Facial pain, worse along right maxilla Cardiovascular: Denies: Chest pain, Palpitations Respiratory: Reports: Cough - Improving. Denies: Dyspnea Gastrointestinal: Denies: Abdominal pain, Nausea, Vomiting, Diarrhea Genitourinary: Denies: Dysuria Musculoskeletal: Denies: Neck pain, Back pain Skin: Denies: Rash Neurological: Denies: Headache Physical Exam Vital Signs/Narrative: Vital Signs Temp Pulse Resp BP Pulse Ox 05/07/19 20:52 98.2 F 110 H 16 153/99 H 96 Inital Vital Signs reviewed: Yes General: Well nourished, Well developed Head: Normocephalic Eyes: Perrl, EOMI ENT: Moist mucous membranes, TM's clear, - - Facial tenderness, worse over right maxilla. No facial edema or erythema noted. Posterior pharynx exam is normal. Neck: Supple Cardiovascular: Regular rate, Regular rhythm Respiratory: No distress, CTA bilaterally Abdomen: Soft, Nontender, Nondistended Extremities: Nontender Skin: Normal color, No rash Neurological: Alert, Oriented x3 Psychological: Normal affect Diagnostic/Tx/Re-eval - Medical Decision Making Reviewed with the patient that I do agree the Augmentin is the correct antibiotic for her to be on at this time. I advised her that I would be more concerned about infection spreading to her CSF as opposed to true sepsis. She was given warning signs and what to watch for. She was given a prescription for Flonase today. I will also add Afrin to help open her sinus passages. She can use Sudafed or Benadryl [id number] as well. Patient is comfortable with this plan. ED Disposition - Plan for ED Patient: Disposition: Home or Assisted Living Diagnosis: Sinusitis Instructions: SINUSITIS, Abx Tx Referrals: [facility] Doctor,Out of [Primary Care Provider] - 1 Week if not improving
[2019-05-07 21:07] VITALS: O2SAT 97
[2019-05-07] MEDS: Oxymetazoline 0.05% 1 SPRAY SPRAY.BTL NASAL (21:17)
[2019-05-07 21:19] VITALS: BP 118/72; PULSE 68; RESP 18; TEMP 37.2; O2SAT 98
== END 2019-05-07 21:20 | disposition home or self-care (01) ==
LOC: ED 21:18
PROVIDERS: Emergency Provider Emergency Medicine; Family Provider Family Medicine; PCP Family Medicine
DX: J32.9 Chronic sinusitis, unspecified (principal)
CPT/HCPCS: 99282